=== PATIENT | female | born 1945 | race Caucasian/White ===

== ENCOUNTER → 2022-07-13 | Outpatient (CLI) | payer MEDICARE, OTHER, SELFPAY ==
--- NOTE | 2022-07-13 | EMB_PTH ---
PATIENT: KULDIP RIBERA LOC: [facility] U#:[id number] AGE/SX: 77/F ROOM: RE07/13/[address]: Dr. Rad Patel MD : 1945 BED: DIS: 07/13/2022 SPEC #: [id number] RECD: 07/13/22 13:09 STATUS: CLIFF NICHOL #: [id number] NICK: 07/13/22 00:[address]: Rad Patel DEPT: SURGICAL PATHOLOGY RECD BY: Sarah Vasquez Tissues: Endometrium, NOS Procedures: Surgery Specimen Level IV HEADER OPERATION: Endometrial biopsy PRE-OP DIAGNOSIS: Postmenopausal bleeding TISSUE SUBMITTED: Endometrial biopsy MICROSCOPIC DIAGNOSIS Endometrium, biopsy: Scant fragments of benign glandular and squamous mucosa. AM:[email or web address] 07/16/2022 MICROSCOPIC DESCRIPTION Slides are reviewed. GROSS DESCRIPTION Received in fixative is one container labeled with the patient's name and designated endometrial biopsy. The specimen consists of multiple irregular fragments of george mucoid tissue that in aggregate measure 2 x 1.5 x 0.3 cm. The specimen is totally submitted in one cassette. / SJ:hermelinda 07/13/2022 TC:5 CPT: 87559
== END | disposition home or self-care (01) ==
PROVIDERS: Visit Provider Obstetrics & Gynecology
DX: N95.0 Postmenopausal bleeding (principal)
CPT/HCPCS: 88305

== ENCOUNTER 2022-09-24 09:16 | Day surgery (SDC) | payer MEDICARE, OTHER, SELFPAY ==
[2022-09-18 11:03] LABS: Hematocrit 46.8 % (37-47); Hemoglobin 15.2 g/dL (12.0-15.0); Mean Corp Hgb Conc 32.5 g/dL (32-36); Mean Corpuscular Hgb 29.6 pg (27.0-32.0); Mean Corpuscular Volume 91.1 fL (81-99); Mean Platelet Vol. 8.8 fl (6.2-12.0); Platelet Count 249 K/mm3 (150-450); RBC Distribution Width CV 14.6 % (11.6-14.6); RBC Distribution Width SD 49.1 fl (35.1-43.9); Red Blood Count 5.14 M/mm3 (4.2-5.4); White Blood Count 4.5 K/mm3 (4.4-11.0)
[2022-09-18 11:22] LABS: International Normalized Ratio 1.9; Prothrombin Time (Protime)PT. 21.6 SECONDS (11.7-14.9)
[2022-09-18 11:23] LABS: Partial Thromboplast Time 34.6 Seconds (24.1-36.2)
[2022-09-24] VITALS (9 sets, daily range): BP systolic 113–161; BP diastolic 70–89; PULSE 65–80; RESP 16–18; TEMP 36.1–37.2; O2SAT 92–95; BMI 47.1
--- NOTE | 2022-09-24 | UTC_PTH ---
PATIENT: KULDIP RIBERA LOC: [facility] [place] U#:[id number] AGE/SX: 77/F ROOM: RE09/24/[address]: Dr. Rad Patel MD : 1945 BED: DIS: 09/24/2022 SPEC #: [id number] RECD: 09/24/22 12:17 STATUS: CLIFF GANDARA #: [id number] NICK: 09/24/22 00:[address]: Rad Patel DEPT: SURGICAL PATHOLOGY RECD BY: Roddy Do ENTERED: 09/24/22 12:18 SP TYPE: ONESIMO SINGH DR: Dr. Bry Price MD Tissues: A - Uterine cervix, NOS B - Vulva, NOS Procedures: Surgery Specimen Level IV HEADER OPERATION: Hysteroscopy, dilation and curettage, vulvar biopsy PRE-OP DIAGNOSIS: Postmenopausal bleeding, vulvar lesion TISSUE SUBMITTED: A ? Uterine curettings, B ? Right vulvar biopsy MICROSCOPIC DIAGNOSIS A. Endometrial curettings: Rare strips of benign endometrial epithelium. Fragments of benign cervical mucosa with squamous metaplasia, fragments of benign squamous epithelium, blood and mucous. B. Right vulvar lesion, biopsy: Epidermal inclusion cyst. Dermal chronic inflammation. See comment. SJ:hermelinda 09/25/2022 COMMENT B. Clinical correlation and appropriate follow up are necessary. Please make reference to previous specimen ([id number]) endometrium, biopsy with diagnosis of ?scant fragments of benign glandular and squamous mucosa.? MICROSCOPIC DESCRIPTION Slides are reviewed. GROSS DESCRIPTION A - Received in fixative is one container labeled with the patient's name and designated uterine curettings. The specimen consists of multiple fragments of hemorrhagic mucoid tissue that in aggregate measure 3.0 x 2.5 x 0.2 cm. The specimen is totally submitted in one cassette. B - Received in fixative is one container labeled with the patient's name and designated right vulvar biopsy. The specimen consists of a piece of george-light brown skin measuring 1.0 x 0.5 x 0.1 cm. The specimen is inked, bisected and submitted entirely in one cassette. / JENNY:[email or web address] 09/24/2022 TC:5 CPT: 24662, 67281
--- NOTE | 2022-09-24 09:26 | PCM.HP.BLA ---
History and Physical Date of Admission: 09/24/22 Chief complaint: Postmenopausal bleeding History present illness: 77-year-old postmenopausal bleeding elects for hysteroscopy, dilation curettage. No medical changes since last seen. All questions answered and consent signed. Obstetric history: G0 Past medical history: History of DVT and PE Medications: Warfarin 2 mg daily Past surgical history: Right knee, foot x2, umbilical hernia Allergies: No known drug allergies Social history: Denies smoking, alcohol use, drug use Review of systems: Besides above pertinent positives a full review of systems was performed and found to be negative Physical exam: Vitals: Pending General: Normal-appearing no acute distress HEENT: Normocephalic/atraumatic no cervical lymphadenopathy Cardiac/respiratory: No use of accessory muscles, nonlabored breathing Abdomen: Soft, nontender, obese Extremities: No peripheral edema normal peripheral pulses Psych: Normal affect normal demeanor nonpressured speech Assessment and plan: 77-year-old with postmenopausal bleeding elects for hysteroscopy, dilation curettage. Patient understands risk of the procedure include but are not limited to visceral or vascular injury, prolonged hospitalization, blood loss need for transfusion, reoperation. Patient state understanding wish to proceed. All questions were answered and consent was signed. Have been working directly with primary care physician who prescribes warfarin for surgery. Patient was stopped on warfarin greater than a week ago. Follows with PCP for plan for restarting warfarin.
[2022-09-24] MEDS: Lactated Ringers 1,000 ML 15 ML IV (09:45)
--- NOTE | 2022-09-24 10:40 | DCINST_ITS ---
Discharge Instructions Diet Discharge Diet: No restrictions Activity Discharge Activity: Return to Normal Activity and May Not Drive May resume sexual activity in: 4-6 weeks Weight Bearing Status: Weight bearing as tolerated Dressing / Incision Call your doctor if your incision/area has: Continuous Slow Oozing and Foul Smelling Discharge Call your doctor if you observe: Fever of 101 or Higher, Shortness of breath and Chest pain Follow Up Care Please Follow Up With: Rad Patel MD When: 2 weeks posts operatively Test Results: Test results from this visit will be discussed in further detail at your follow- up appointment, if applicable. Discharge Plan Admission Attending Provider: Rad Patel Primary Care Provider: Bry Price Discharge Orders/Prescriptions Prescriptions: No Action ascorbic acid (vitamin C) [Vitamin C] 1,000 mg Tablet 1 g PO DAILY warfarin 2 mg Tablet 2 mg PO WESA docusate sodium [Stool Softener] 100 mg Capsule 100 mg PO PRN PRN (Reason: Constipation) warfarin 1 mg Tablet 1 mg PO SUMOTUTHFR folic acid 800 mcg Tablet 0.8 mg PO DAILY loratadine 10 mg Capsule 10 mg PO DAILY Women's 50 Plus Daily Formula 400 mcg-500 mg calcium-20 mcg Tablet 1 tab PO DAILY vitamin D25-[id number] acid 1,000-400 mcg Tablet, Sublingual 1,000 tab SUBLINGUAL DAILY Referrals / Follow Up: Bry Price MD [Primary Care Provider] - Disposition Disposition (needs filled in before D/C Order can be placed): Home, Self Care
--- NOTE | 2022-09-24 10:46 | OP.PCM_ITS ---
Report of Operation Date of Procedure: 09/24/22 Pre-Operative Diagnosis: Postmenopausal bleeding Post-Operative Diagnosis: Postmenopausal bleeding, vulvar lesion Surgery/Procedure Performed:: Hysteroscopy, dilation curettage, right vulvar biopsy Description of Surgical Findings:: Surgeon: Rad Patel MD Anesthesia: MAC EBL: 5 cc Urine output: 25 cc IV fluids: 700 cc Complications: None Specimen: Endometrial curettings, right vulvar biopsy Findings: Hysteroscopy revealed no pathology, no polyps or fibroids. Bilateral vulva with dark pigmentation, right vulvar biopsy taken Consent: Patient with postmenopausal bleeding elects for hysteroscopy, dilation curettage patient or stands risk of the procedure include but are not limited to visceral or vascular injury, prolonged hospitalization, blood loss need for transfusion, reoperation. Patient state understanding and wished to proceed. All questions were answered and consent was signed. Procedure: Patient was brought back to the OR where MAC anesthesia was found to be adequate . Patient was prepared and draped in a dorsolithotomy position with yellowfin stirrups. A weighted speculum is placed in the posterior aspect of the vagina and cervical dilators used to dilate cervix. Hysteroscope was inserted and above findings were noted. Sharp endometrial curettings were performed in all quadrants and sent to pathology. Good hemostasis was noted. Bilateral vulvar dark skin pigmentation was noted. Decided based on anesthesia and findings needs biopsied for right vulvar biopsy. 10 blade scalpel used to obtain biopsy, tissue sent to pathology. Vulvar tissue reapproximated with 3-0 Vicryl suture, interrupted sutures. Good hemostasis was noted. All counts were correct x2. Patient tolerated the procedure well and was brought to recovery in stable condition.
[2022-09-25 10:26] LABS: INR Fingerstick 1.5; Prothrombin Time Fingerstick 16.4 SEC (11.7-14.9)
== END 2022-09-24 13:20 | disposition home or self-care (01) ==
LOC: SDC 09:19 → AC 09:20
PROVIDERS: PCP Family Medicine; Referring Provider Obstetrics & Gynecology; Visit Provider Obstetrics & Gynecology
PROC: 0UDB8ZZ Extraction of Endometrium, Via Natural or Artificial Opening Endoscopic (ICD-10-PCS; CPT 58558; principal; 2022-09-24 11:05)
DX: N87.9 Dysplasia of cervix uteri, unspecified (principal); N90.7 Vulvar cyst; N95.0 Postmenopausal bleeding; Z86.718 Personal history of other venous thrombosis and embolism; Z79.01 Long term (current) use of anticoagulants; Z86.711 Personal history of pulmonary embolism
CPT/HCPCS: 58558; 00952; 36415; 36416; 85027; 85610; 85730; 86850; 86900; 86901; 88305; J7120; J2405